=== PATIENT | female | born 1940 | race Asian ===

== ENCOUNTER 2018-07-03 02:43 | Inpatient (IN) | payer MEDICARE, OTHER ==
[~2018-07-03] VITALS: Ht 157.5 cm; Wt 72.1 kg
[~2018-07-03 02:43] MED LIST: AMLO-512 PO; ASPI81 PO; ATOR40TA28 PO; B CO1CAP4 PO; CLON1PAT12 TD; FERR-89 PO; FURO40 PO; HYDR-2924 PO; METO25 PO; SITA25 PO
[2018-07-03 02:59] LABS: GLUCOSE,POINT OF CARE 195 MG/DL (70-110)
[2018-07-03] MEDS ORDERED: LOSA25TA41 PO (03:11)
[2018-07-03] MEDS ORDERED: GLIP10 PO (03:11)
[2018-07-03] MEDS ORDERED: FUROSEMIDE 40 MG/4 ML VIAL IVP ONE (04:45)
[2018-07-03 04:49] LABS: EOSINOPHILS % (AUTO) 1.7 % (1.0-6.0); HEMATOCRIT 33.5 % (36-46); HEMOGLOBIN 10.9 g/dL (12.0-16.0); LYMPHOCYTES # (AUTO) 1.7 K/uL (1.0-4.8); LYMPHOCYTES % (AUTO) 11.5 % (22.0-44.0); MEAN CORPUSCULAR HEMOGLOBIN 29.8 pg (26.0-34.0); MEAN CORPUSCULAR HGB CONC 32.6 G/dL (31.0-37.0); MEAN CORPUSCULAR VOLUME 91 fL (80-100); MONOCYTES # (AUTO) 0.7 K/uL (0.1-1.0); NEUTROPHILS # (AUTO) 12.1 K/uL (1.8-7.7); NEUTROPHILS % (AUTO) 80.8 % (40.0-70.0); PLATELET COUNT (AUTO) 299 K/uL (150-450); RED BLOOD CELL COUNT(AUTO) 3.66 MIL/uL (4.00-5.20); RED CELL DISTRIBUTION WIDTH 15.5 % (11.5-14.5)
[2018-07-03 04:53] LABS: INR 0.9 (0.9-1.1); PROTHROMBIN TIME 9.9 SEC (9.4-11.6)
[2018-07-03 05:01] LABS: CALCIUM, TOTAL 9.3 mg/dL (8.8-10.5); CREATININE 8.59 mg/dL (0.60-1.30); POTASSIUM 4.1 mmol/L (3.5-5.1)
[2018-07-03 05:25] LABS: ALBUMIN 3.9 g/dL (3.4-5.0); BILIRUBIN,TOTAL 0.5 mg/dL (0.1-1.0); TOTAL PROTEIN, SERUM 8.7 g/dL (6.4-8.2)
[2018-07-03] MEDS ORDERED: NITROGLYCERIN 0.4 MG SUBLINGUAL TABLET #25 SL ONE (05:30)
[2018-07-03 06:00] LABS: APPEARANCE,URINE CLOUDY (CLEAR); BILIRUBIN,URINE NEGATIVE (NEGATIVE); GLUCOSE, URINE (UA) 100 mg/dL (NEGATIVE); KETONES,URINE NEGATIVE (NEGATIVE); LEUKOCYTE ESTERASE ,URINE MODERATE (NEGATIVE); NITRATE,URINE NEGATIVE (NEGATIVE); OCCULT BLOOD,URINE LARGE (NEGATIVE); PH,URINE 6.5 (5.0-8.0); PROTEIN,URINE SEE CONFIRM (NEGATIVE); UROBILINOGEN,URINE 0.2 mg/dL (<=1.0)
[2018-07-03 06:19] LABS: SULFOSALICYLIC ACID,URINE 4+ (Negative)
[2018-07-03 06:20] LABS: BACTERIA,URINE Few /HPF (None Seen); RBC,URINE 26-50 /HPF (0-2); SQUAMOUS EPITHELIAL CELL,UR Moderate /LPF (None Seen); WBC,URINE 26-50 /HPF (0-5)
[2018-07-03] MEDS ORDERED: ACETAMINOPHEN 325 MG TABLET PO ONE (07:45)
[2018-07-03] MEDS ORDERED: ONDANSETRON HCL 4 MG/2 ML VIAL IVP PRN ×2 (08:00→13:00)
[2018-07-03] MEDS ORDERED: ACETAMINOPHEN 325 MG TABLET PO PRN (08:00)
[2018-07-03] MEDS ORDERED: 0.9% SODIUM CHLORIDE 10 ML SYRINGE IVP PRN (08:00)
[2018-07-03] MEDS ORDERED: HEPARIN SODIUM,PORCINE 5,000 UNITS/ML VIAL IVP PRN (11:30)
[2018-07-03] MEDS: HEPARIN SODIUM 25000 UNITS/D5W 250 ML IV PRN (12:10)
[2018-07-03] MEDS ORDERED: ZOLPIDEM TARTRATE 5 MG TABLET PO PRN (13:00)
[2018-07-03] MEDS ORDERED: HYDROCODONE/ACETAMINOPHEN 5-325 MG TABLET PO PRN (13:00)
[2018-07-03] MEDS ORDERED: MORPHINE SULFATE 2 MG/ML SYRINGE IVP PRN (13:00)
[2018-07-03] MEDS: LEVOFLOXACIN 500 MG/D5% WATER 100 ML IV SCH (13:00)
[2018-07-03] MEDS ORDERED: BISACODYL 10 MG RECTAL RECTAL SUPPOSITORY PR PRN (13:00)
[2018-07-03] MEDS ORDERED: MAGNESIUM HYDROXIDE SUSPENSION 30 ML UDCUP PO PRN (13:00)
[2018-07-03] MEDS ORDERED: *CLINICAL-LEVOFLOXACIN IVPB DOSING CLINICAL ONE (13:00)
[2018-07-03 14:19] LABS: GLUCOSE,POINT OF CARE 253 MG/DL (70-110)
[2018-07-03] MEDS ORDERED: SODIUM CHLORIDE 0.9% 250 ML IV ONE (14:39)
[2018-07-03] MEDS: HydrALAZINE HCL 50 MG TABLET PO SCH ×2 (15:26→19:54)
[2018-07-03 16:00] VITALS: BP_SYST 178; BP_SYST 205; BP_DIAS 35; BP_DIAS 81
[2018-07-03] MEDS ORDERED: NITROGLYCERIN 2% (1 GM=INCH) PACKET TP ONE (16:17)
[2018-07-03] MEDS ORDERED: NITROGLYCERIN 2% (1 GM=INCH) PACKET TP SCH (16:30)
[2018-07-03] MEDS ORDERED: ASPIRIN 325 MG TABLET PO ONE (16:30)
[2018-07-03] MEDS ORDERED: LIDOCAINE/PF 1% 2 ML VIAL INJ ONE ×2 (16:54→17:11)
[2018-07-03] MEDS ORDERED: GlipiZIDE 10 MG TABLET PO SCH (17:00)
[2018-07-03 17:29] LABS: GLUCOSE,POINT OF CARE 214 MG/DL (70-110)
[2018-07-03] MEDS ORDERED: DEXTROSE 50%-WATER 25 GM/50 ML SYRINGE IVP PRN (18:00)
[2018-07-03] MEDS: INSULIN LISPRO 100 UNITS/ML SQ PRN ×2 (18:15→21:19)
[2018-07-03] MEDS ORDERED: NITROGLYCERIN 50 MG/D5% WATER 250 ML IV PRN (18:36)
[2018-07-03] MEDS: METOPROLOL TARTRATE 25 MG TABLET PO SCH (19:54)
[2018-07-03] MEDS: ATORVASTATIN CALCIUM 40 MG TABLET PO SCH (19:54)
[2018-07-03] MEDS: DOCUSATE SODIUM 100 MG CAPSULE PO SCH (19:54)
[2018-07-03 20:00] VITALS: BP 183/78
[2018-07-03 20:27] LABS: GLUCOSE,POINT OF CARE 205 MG/DL (70-110)
[2018-07-03] MEDS ORDERED: METOPROLOL TARTRATE 25 MG TABLET PO SCH (21:00)
[2018-07-03] MEDS ORDERED: SODIUM CHLORIDE 0.9% 2,000 ML IV ONE (21:47)
[2018-07-03 22:11] LABS: GLUCOSE,POINT OF CARE 223 MG/DL (70-110)
[2018-07-03] MEDS: NITROGLYCERIN 2% (1 GM=INCH) PACKET TP SCH (23:42)
[2018-07-04] VITALS (8 sets, daily range): BP systolic 141–212; BP diastolic 53–82
[2018-07-04 04:49] LABS: GLUCOSE,POINT OF CARE 223 MG/DL (70-110)
[2018-07-04] MEDS: HEPARIN SODIUM 25000 UNITS/D5W 250 ML IV PRN (05:00)
[2018-07-04] MEDS: INSULIN LISPRO 100 UNITS/ML SQ PRN ×2 (05:00→21:35)
[2018-07-04] MEDS: NITROGLYCERIN 2% (1 GM=INCH) PACKET TP SCH ×3 (05:00→18:00)
[2018-07-04 05:15] LABS: BASOPHILS % (AUTO) 0.7 % (0.0-2.0); EOSINOPHILS % (AUTO) 1.8 % (1.0-6.0); LYMPHOCYTES # (AUTO) 1.5 K/uL (1.0-4.8); LYMPHOCYTES % (AUTO) 16.1 % (22.0-44.0); MEAN CORPUSCULAR HEMOGLOBIN 30.3 pg (26.0-34.0); MEAN CORPUSCULAR HGB CONC 33.6 G/dL (31.0-37.0); MEAN CORPUSCULAR VOLUME 90 fL (80-100); MONOCYTES # (AUTO) 0.6 K/uL (0.1-1.0); MONOCYTES % (AUTO) 6.5 % (2.0-9.0); NEUTROPHILS # (AUTO) 6.8 K/uL (1.8-7.7); NEUTROPHILS % (AUTO) 74.9 % (40.0-70.0); PLATELET COUNT (AUTO) 254 K/uL (150-450); RED BLOOD CELL COUNT(AUTO) 2.88 MIL/uL (4.00-5.20); RED CELL DISTRIBUTION WIDTH 15.9 % (11.5-14.5)
[2018-07-04 05:16] LABS: HEMOGLOBIN 8.7 g/dL (12.0-16.0)
[2018-07-04 05:25] LABS: ALBUMIN 3.2 g/dL (3.4-5.0); BILIRUBIN,TOTAL 0.5 mg/dL (0.1-1.0); CALCIUM, TOTAL 8.9 mg/dL (8.8-10.5); CREATININE 5.54 mg/dL (0.60-1.30); MAGNESIUM 1.9 mg/dL (1.80-2.40); PHOSPHORUS 3.8 mg/dL (2.5-4.9); POTASSIUM 4.1 mmol/L (3.5-5.1); TOTAL PROTEIN, SERUM 6.9 g/dL (6.4-8.2)
[2018-07-04] MEDS: HydrALAZINE HCL 50 MG TABLET PO SCH ×3 (09:10→21:24)
[2018-07-04] MEDS: METOPROLOL TARTRATE 25 MG TABLET PO SCH ×2 (09:10→21:24)
[2018-07-04] MEDS: AmLODIPine BESYLATE 10 MG TABLET PO SCH (09:10)
[2018-07-04] MEDS: FUROSEMIDE 40 MG/4 ML VIAL IVP SCH (09:11)
[2018-07-04] MEDS: DOCUSATE SODIUM 100 MG CAPSULE PO SCH ×2 (09:11→21:00)
[2018-07-04] MEDS: ASPIRIN 81 MG CHEWABLE TABLET PO SCH (09:11)
[2018-07-04] MEDS: PANTOPRAZOLE SODIUM 40 MG DR TABLET PO SCH (09:11)
[2018-07-04] MEDS: LOSARTAN POTASSIUM 25 MG TABLET PO SCH (09:12)
[2018-07-04] MEDS ORDERED: SODIUM BICARBONATE 50 MEQ/50 ML VIAL ONE (12:18)
[2018-07-04] MEDS ORDERED: IOHEXOL 300 MG/ML 150 ML VIAL ONE (12:18)
[2018-07-04] MEDS ORDERED: LIDOCAINE/PF 1% 30 ML VIAL ONE (12:18)
[2018-07-04] MEDS ORDERED: HEPARIN SODIUM 1000 UNITS/NS 1,000 ML ONE (12:18)
[2018-07-04] MEDS ORDERED: FUROSEMIDE 40 MG/4 ML VIAL ONE (13:10)
[2018-07-04] MEDS ORDERED: NITROGLYCERIN 50 MG/D5% WATER 250 ML ONE (13:13)
[2018-07-04] MEDS ORDERED: FUROSEMIDE 40 MG/4 ML VIAL IVP ONE (13:30)
[2018-07-04] MEDS ORDERED: NITROGLYCERIN 50 MG/D5% WATER 250 ML IV PRN ×2 (13:30→13:45)
[2018-07-04] MEDS ORDERED: SODIUM CHLORIDE 0.9% 2,000 ML IV ONE (14:31)
[2018-07-04] MEDS: ATORVASTATIN CALCIUM 40 MG TABLET PO SCH (21:24)
[2018-07-04 21:40] LABS: GLUCOSE,POINT OF CARE 206 MG/DL (70-110)
[2018-07-04 21:40] LABS: GLUCOSE,POINT OF CARE 274 MG/DL (70-110)
[2018-07-05] VITALS: BP 163/69
[2018-07-05 00:14] LABS: GLUCOSE,POINT OF CARE 198 MG/DL (70-110)
[2018-07-05 04:00] VITALS: BP 124/43
[2018-07-05 04:59] LABS: BASOPHILS % (AUTO) 0.8 % (0.0-2.0); EOSINOPHILS % (AUTO) 0.5 % (1.0-6.0); HEMATOCRIT 30.6 % (36-46); HEMOGLOBIN 10.2 g/dL (12.0-16.0); LYMPHOCYTES # (AUTO) 2.7 K/uL (1.0-4.8); LYMPHOCYTES % (AUTO) 24.1 % (22.0-44.0); MEAN CORPUSCULAR HEMOGLOBIN 30.9 pg (26.0-34.0); MEAN CORPUSCULAR HGB CONC 33.4 G/dL (31.0-37.0); MEAN CORPUSCULAR VOLUME 93 fL (80-100); MONOCYTES % (AUTO) 8.8 % (2.0-9.0); NEUTROPHILS # (AUTO) 7.2 K/uL (1.8-7.7); NEUTROPHILS % (AUTO) 65.8 % (40.0-70.0); PLATELET COUNT (AUTO) 298 K/uL (150-450); RED BLOOD CELL COUNT(AUTO) 3.31 MIL/uL (4.00-5.20); RED CELL DISTRIBUTION WIDTH 16.4 % (11.5-14.5)
[2018-07-05] MEDS: NITROGLYCERIN 2% (1 GM=INCH) PACKET TP SCH ×5 (05:17→23:40)
[2018-07-05 05:35] LABS: ALBUMIN 3.6 g/dL (3.4-5.0); BILIRUBIN,TOTAL 0.4 mg/dL (0.1-1.0); CALCIUM, TOTAL 9.5 mg/dL (8.8-10.5); CREATININE 4.93 mg/dL (0.60-1.30); POTASSIUM 4.1 mmol/L (3.5-5.1); TOTAL PROTEIN, SERUM 8.1 g/dL (6.4-8.2)
[2018-07-05] MEDS: HEPARIN SODIUM 25000 UNITS/D5W 250 ML IV PRN (06:03)
[2018-07-05] MEDS: INSULIN LISPRO 100 UNITS/ML SQ PRN ×4 (06:04→21:11)
[2018-07-05 08:00] VITALS: BP 137/50
[2018-07-05] MEDS: PANTOPRAZOLE SODIUM 40 MG DR TABLET PO SCH (08:46)
[2018-07-05] MEDS: LOSARTAN POTASSIUM 25 MG TABLET PO SCH (08:46)
[2018-07-05] MEDS: AmLODIPine BESYLATE 10 MG TABLET PO SCH (08:46)
[2018-07-05] MEDS: METOPROLOL TARTRATE 25 MG TABLET PO SCH ×2 (08:47→20:54)
[2018-07-05] MEDS: HydrALAZINE HCL 50 MG TABLET PO SCH ×3 (08:47→23:40)
[2018-07-05] MEDS: ASPIRIN 81 MG CHEWABLE TABLET PO SCH (08:47)
[2018-07-05] MEDS: FUROSEMIDE 40 MG/4 ML VIAL IVP SCH (08:48)
[2018-07-05] MEDS: DOCUSATE SODIUM 100 MG CAPSULE PO SCH ×2 (09:00→19:22)
[2018-07-05] MEDS: EPOETIN ALFA 10,000 UNITS/ML VIAL SQ SCH (09:25)
[2018-07-05 12:00] VITALS: BP 148/55
[2018-07-05] MEDS: LEVOFLOXACIN 500 MG/D5% WATER 100 ML IV SCH (13:59)
[2018-07-05] MEDS ORDERED: LIDOCAINE/PF 1% 2 ML VIAL IV ONE (16:55)
[2018-07-05] MEDS ORDERED: EPINEPHrine 2 MG in DEXTROSE 5%-WATER 248 ML IV PRN (18:30)
[2018-07-05 20:00] VITALS: BP 176/57
[2018-07-05 20:04] LABS: GLUCOSE,POINT OF CARE 214 MG/DL (70-110)
[2018-07-05 20:04] LABS: GLUCOSE,POINT OF CARE 239 MG/DL (70-110)
[2018-07-05] MEDS: ATORVASTATIN CALCIUM 40 MG TABLET PO SCH (20:54)
[2018-07-05] MEDS: VITAMIN B COMP/VIT C/FOLIC ACID CAPSULE PO SCH (20:54)
[2018-07-05 21:15] LABS: GLUCOSE,POINT OF CARE 231 MG/DL (70-110)
[2018-07-06] VITALS (16 sets, daily range): BP systolic 120–212; BP diastolic 47–97
[2018-07-06] MEDS: ACETAMINOPHEN 325 MG TABLET PO PRN (01:27)
[2018-07-06 04:09] LABS: GLUCOSE,POINT OF CARE 249 MG/DL (70-110)
[2018-07-06 05:15] LABS: BASOPHILS % (AUTO) 0.2 % (0.0-2.0); EOSINOPHILS % (AUTO) 2.6 % (1.0-6.0); HEMATOCRIT 28.6 % (36-46); HEMOGLOBIN 9.3 g/dL (12.0-16.0); LYMPHOCYTES # (AUTO) 1.8 K/uL (1.0-4.8); MEAN CORPUSCULAR HEMOGLOBIN 30.2 pg (26.0-34.0); MEAN CORPUSCULAR HGB CONC 32.5 G/dL (31.0-37.0); MEAN CORPUSCULAR VOLUME 93 fL (80-100); MONOCYTES # (AUTO) 0.8 K/uL (0.1-1.0); MONOCYTES % (AUTO) 8.3 % (2.0-9.0); NEUTROPHILS # (AUTO) 6.4 K/uL (1.8-7.7); NEUTROPHILS % (AUTO) 68.9 % (40.0-70.0); PLATELET COUNT (AUTO) 279 K/uL (150-450); RED BLOOD CELL COUNT(AUTO) 3.08 MIL/uL (4.00-5.20); RED CELL DISTRIBUTION WIDTH 16.3 % (11.5-14.5)
[2018-07-06 05:43] LABS: CALCIUM, TOTAL 9.6 mg/dL (8.8-10.5); CREATININE 7.57 mg/dL (0.60-1.30); PHOSPHORUS 5.4 mg/dL (2.5-4.9); POTASSIUM 3.9 mmol/L (3.5-5.1)
[2018-07-06] MEDS: NITROGLYCERIN 2% (1 GM=INCH) PACKET TP SCH ×3 (06:08→17:19)
[2018-07-06] MEDS: INSULIN LISPRO 100 UNITS/ML SQ PRN ×3 (06:11→20:26)
[2018-07-06] MEDS: HydrALAZINE HCL 50 MG TABLET PO SCH ×3 (08:34→20:06)
[2018-07-06] MEDS: LOSARTAN POTASSIUM 25 MG TABLET PO SCH (08:34)
[2018-07-06] MEDS: FUROSEMIDE 40 MG/4 ML VIAL IVP SCH (08:34)
[2018-07-06] MEDS: AmLODIPine BESYLATE 10 MG TABLET PO SCH (08:34)
[2018-07-06] MEDS: PANTOPRAZOLE SODIUM 40 MG DR TABLET PO SCH (08:35)
[2018-07-06] MEDS: METOPROLOL TARTRATE 25 MG TABLET PO SCH (08:35)
[2018-07-06] MEDS: ASPIRIN 81 MG CHEWABLE TABLET PO SCH (08:35)
[2018-07-06] MEDS: VITAMIN B COMP/VIT C/FOLIC ACID CAPSULE PO SCH (09:00)
[2018-07-06] MEDS: DOCUSATE SODIUM 100 MG CAPSULE PO SCH ×2 (09:00→20:06)
[2018-07-06 11:04] LABS: GLUCOSE,POINT OF CARE 183 MG/DL (70-110)
[2018-07-06] MEDS ORDERED: SODIUM CHLORIDE 0.9% 2,000 ML IV ONE (11:31)
[2018-07-06] MEDS ORDERED: MIDAZOLAM HCL 2 MG/2 ML VIAL ONE (12:30)
[2018-07-06] MEDS ORDERED: NITROGLYCERIN 50 MG/D5% WATER 0 ML ONE (12:30)
[2018-07-06] MEDS ORDERED: FentaNYL CITRATE-PF 100 MCG/2 ML VIAL ONE (12:30)
[2018-07-06] MEDS ORDERED: SODIUM BICARBONATE 50 MEQ/50 ML VIAL ONE (12:31)
[2018-07-06] MEDS ORDERED: IOHEXOL 300 MG/ML 100 ML VIAL ONE (12:31)
[2018-07-06] MEDS ORDERED: IOHEXOL 300 MG/ML 150 ML VIAL ONE (12:31)
[2018-07-06] MEDS ORDERED: HEPARIN SODIUM 1000 UNITS/NS 1,000 ML ONE (12:31)
[2018-07-06] MEDS ORDERED: LIDOCAINE/PF 1% 30 ML VIAL ONE (12:31)
[2018-07-06] MEDS ORDERED: HEPARIN SODIUM,PORCINE 1,000 UNITS/ML 10 ML VIAL ONE (12:32)
[2018-07-06] MEDS ORDERED: VERAPAMIL HCL 2.5 MG/ML 2 ML VIAL ONE (12:32)
[2018-07-06] MEDS ORDERED: SODIUM CHLORIDE 0.9% 500 ML IV ONE (12:44)
[2018-07-06] MEDS ORDERED: LIDOCAINE 1% 30 ML/SOD BICARB 8.4% 4 ML SQ ONE (12:45)
[2018-07-06] MEDS ORDERED: HEPARIN SODIUM 2,000 UNITS in HEPARIN SODIUM 1000 UNITS/NS 1,000 ML IARTER ONE (12:50)
[2018-07-06] MEDS ORDERED: IOHEXOL 300 MG/ML 150 ML VIAL IARTER ONE (12:52)
[2018-07-06] MEDS ORDERED: IOHEXOL 300 MG/ML 50 ML VIAL IARTER ONE (12:52)
[2018-07-06] MEDS ORDERED: IOHEXOL 300 MG/ML 50 ML VIAL ONE (13:03)
[2018-07-06] MEDS: METOPROLOL SUCCINATE 50 MG ER TABLET PO SCH (15:12)
[2018-07-06] MEDS ORDERED: LIDOCAINE/PF 1% 2 ML VIAL IM ONE (17:57)
[2018-07-06] MEDS: ATORVASTATIN CALCIUM 40 MG TABLET PO SCH (20:06)
[2018-07-06 23:14] LABS: GLUCOSE,POINT OF CARE 233 MG/DL (70-110)
[2018-07-06 23:14] LABS: GLUCOSE,POINT OF CARE 276 MG/DL (70-110)
[2018-07-07] VITALS: BP 152/58
[2018-07-07] MEDS: NITROGLYCERIN 2% (1 GM=INCH) PACKET TP SCH ×5 (01:59→23:54)
[2018-07-07 04:00] VITALS: BP 163/52
[2018-07-07 05:00] LABS: BASOPHILS % (AUTO) 1.2 % (0.0-2.0); EOSINOPHILS % (AUTO) 1.7 % (1.0-6.0); HEMATOCRIT 28.9 % (36-46); HEMOGLOBIN 9.5 g/dL (12.0-16.0); LYMPHOCYTES # (AUTO) 1.7 K/uL (1.0-4.8); LYMPHOCYTES % (AUTO) 18.3 % (22.0-44.0); MEAN CORPUSCULAR HEMOGLOBIN 30.7 pg (26.0-34.0); MEAN CORPUSCULAR HGB CONC 32.8 G/dL (31.0-37.0); MEAN CORPUSCULAR VOLUME 94 fL (80-100); MONOCYTES # (AUTO) 0.9 K/uL (0.1-1.0); MONOCYTES % (AUTO) 9.9 % (2.0-9.0); NEUTROPHILS # (AUTO) 6.4 K/uL (1.8-7.7); NEUTROPHILS % (AUTO) 68.9 % (40.0-70.0); PLATELET COUNT (AUTO) 285 K/uL (150-450); RED BLOOD CELL COUNT(AUTO) 3.08 MIL/uL (4.00-5.20); RED CELL DISTRIBUTION WIDTH 17.2 % (11.5-14.5)
[2018-07-07 05:19] LABS: ALBUMIN 3.4 g/dL (3.4-5.0); BILIRUBIN,TOTAL 0.4 mg/dL (0.1-1.0); CALCIUM, TOTAL 9.6 mg/dL (8.8-10.5); CHOL/HDL RATIO 2.1 (3.9-5.7); CREATININE 6.97 mg/dL (0.60-1.30); MAGNESIUM 1.9 mg/dL (1.80-2.40); PHOSPHORUS 5.6 mg/dL (2.5-4.9); POTASSIUM 4.5 mmol/L (3.5-5.1); TOTAL PROTEIN, SERUM 7.4 g/dL (6.4-8.2)
[2018-07-07] MEDS: INSULIN LISPRO 100 UNITS/ML SQ PRN ×4 (06:02→21:30)
[2018-07-07] MEDS: HEPARIN SODIUM,PORCINE 5,000 UNITS/ML VIAL IVP PRN ×2 (06:09→20:32)
[2018-07-07 06:49] LABS: GLUCOSE,POINT OF CARE 265 MG/DL (70-110)
[2018-07-07 08:00] VITALS: BP 158/61
[2018-07-07] MEDS: LOSARTAN POTASSIUM 25 MG TABLET PO SCH ×2 (09:00→11:00)
[2018-07-07] MEDS: HydrALAZINE HCL 50 MG TABLET PO SCH ×4 (09:00→20:18)
[2018-07-07] MEDS: METOPROLOL SUCCINATE 50 MG ER TABLET PO SCH (09:00)
[2018-07-07] MEDS: DOCUSATE SODIUM 100 MG CAPSULE PO SCH ×2 (09:45→20:18)
[2018-07-07] MEDS: FUROSEMIDE 40 MG/4 ML VIAL IVP SCH (09:45)
[2018-07-07] MEDS: AmLODIPine BESYLATE 10 MG TABLET PO SCH (09:46)
[2018-07-07] MEDS: ASPIRIN 81 MG CHEWABLE TABLET PO SCH (09:46)
[2018-07-07] MEDS: PANTOPRAZOLE SODIUM 40 MG DR TABLET PO SCH (09:46)
[2018-07-07] MEDS: VITAMIN B COMP/VIT C/FOLIC ACID CAPSULE PO SCH (09:46)
[2018-07-07] MEDS: EPOETIN ALFA 10,000 UNITS/ML VIAL SQ SCH (09:48)
[2018-07-07] MEDS: HEPARIN SODIUM 25000 UNITS/D5W 250 ML IV PRN (09:53)
[2018-07-07 12:00] VITALS: BP_SYST 156; BP_SYST 183; BP_DIAS 55; BP_DIAS 58
[2018-07-07] MEDS: LEVOFLOXACIN 500 MG/D5% WATER 100 ML IV SCH (12:23)
[2018-07-07 12:44] LABS: GLUCOSE,POINT OF CARE 314 MG/DL (70-110)
[2018-07-07] MEDS ORDERED: CloNIDine HCL 0.1 MG TABLET PO PRN (15:15)
[2018-07-07 16:00] VITALS: BP 166/62
[2018-07-07 18:45] LABS: GLUCOSE,POINT OF CARE 186 MG/DL (70-110)
[2018-07-07 20:00] VITALS: BP 157/50
[2018-07-07] MEDS: ATORVASTATIN CALCIUM 40 MG TABLET PO SCH (20:18)
[2018-07-08] VITALS (8 sets, daily range): BP systolic 120–173; BP diastolic 48–72
[2018-07-08] MEDS: ACETAMINOPHEN 325 MG TABLET PO PRN ×3 (03:58→23:12)
[2018-07-08] MEDS: NITROGLYCERIN 2% (1 GM=INCH) PACKET TP SCH ×4 (05:35→23:12)
[2018-07-08] MEDS: HEPARIN SODIUM 25000 UNITS/D5W 250 ML IV PRN ×2 (05:36→12:55)
[2018-07-08] MEDS: INSULIN LISPRO 100 UNITS/ML SQ PRN ×3 (05:53→20:31)
[2018-07-08 05:54] LABS: GLUCOSE,POINT OF CARE 274 MG/DL (70-110)
[2018-07-08 05:54] LABS: GLUCOSE,POINT OF CARE 299 MG/DL (70-110)
[2018-07-08 05:54] LABS: GLUCOSE,POINT OF CARE 308 MG/DL (70-110)
[2018-07-08] MEDS: METOPROLOL SUCCINATE 50 MG ER TABLET PO SCH (08:30)
[2018-07-08] MEDS: HydrALAZINE HCL 50 MG TABLET PO SCH ×4 (08:30→20:35)
[2018-07-08] MEDS: VITAMIN B COMP/VIT C/FOLIC ACID CAPSULE PO SCH (08:30)
[2018-07-08] MEDS: AmLODIPine BESYLATE 10 MG TABLET PO SCH (08:31)
[2018-07-08] MEDS: FUROSEMIDE 40 MG/4 ML VIAL IVP SCH (08:31)
[2018-07-08] MEDS: LOSARTAN POTASSIUM 25 MG TABLET PO SCH (08:31)
[2018-07-08] MEDS: DOCUSATE SODIUM 100 MG CAPSULE PO SCH ×2 (08:31→20:28)
[2018-07-08] MEDS: ASPIRIN 81 MG CHEWABLE TABLET PO SCH (08:31)
[2018-07-08] MEDS: PANTOPRAZOLE SODIUM 40 MG DR TABLET PO SCH (08:31)
[2018-07-08 09:48] LABS: BASOPHILS % (AUTO) 1.3 % (0.0-2.0); EOSINOPHILS % (AUTO) 2.5 % (1.0-6.0); HEMATOCRIT 27.7 % (36-46); HEMOGLOBIN 9.1 g/dL (12.0-16.0); LYMPHOCYTES # (AUTO) 1.8 K/uL (1.0-4.8); LYMPHOCYTES % (AUTO) 20.8 % (22.0-44.0); MEAN CORPUSCULAR HEMOGLOBIN 30.7 pg (26.0-34.0); MEAN CORPUSCULAR HGB CONC 32.8 G/dL (31.0-37.0); MEAN CORPUSCULAR VOLUME 94 fL (80-100); MONOCYTES # (AUTO) 0.7 K/uL (0.1-1.0); MONOCYTES % (AUTO) 8.5 % (2.0-9.0); NEUTROPHILS # (AUTO) 5.7 K/uL (1.8-7.7); NEUTROPHILS % (AUTO) 66.9 % (40.0-70.0); PLATELET COUNT (AUTO) 265 K/uL (150-450); RED BLOOD CELL COUNT(AUTO) 2.96 MIL/uL (4.00-5.20); RED CELL DISTRIBUTION WIDTH 17.1 % (11.5-14.5)
[2018-07-08 10:20] LABS: CALCIUM, TOTAL 9.3 mg/dL (8.8-10.5); CREATININE 10.04 mg/dL (0.60-1.30); MAGNESIUM 2.2 mg/dL (1.80-2.40); PHOSPHORUS 6.8 mg/dL (2.5-4.9); POTASSIUM 4.1 mmol/L (3.5-5.1)
[2018-07-08] MEDS ORDERED: ENALAPRILAT DIHYDRATE 1.25 MG/ML VIAL IVP PRN (11:00)
[2018-07-08] MEDS: HEPARIN SODIUM,PORCINE 5,000 UNITS/ML VIAL IVP PRN (12:54)
[2018-07-08 14:39] LABS: GLUCOSE,POINT OF CARE 251 MG/DL (70-110)
[2018-07-08] MEDS ORDERED: LIDOCAINE/PF 1% 2 ML VIAL IV ONE (16:34)
[2018-07-08 17:44] LABS: GLUCOSE,POINT OF CARE 241 MG/DL (70-110)
[2018-07-08] MEDS: ATORVASTATIN CALCIUM 40 MG TABLET PO SCH (20:28)
[2018-07-08] MEDS: CARVEDILOL 3.125 MG TABLET PO SCH (20:29)
[2018-07-08] MEDS: INSULIN GLARGINE,HUM.REC.ANLOG 100 UNITS/ML SQ SCH (21:19)
[2018-07-08 23:35] LABS: GLUCOSE,POINT OF CARE 256 MG/DL (70-110)
[2018-07-09] VITALS (8 sets, daily range): BP systolic 124–166; BP diastolic 45–70
[2018-07-09] MEDS: NITROGLYCERIN 2% (1 GM=INCH) PACKET TP SCH ×3 (05:37→17:26)
[2018-07-09] MEDS: INSULIN LISPRO 100 UNITS/ML SQ PRN ×4 (05:46→20:44)
[2018-07-09] MEDS: HEPARIN SODIUM 25000 UNITS/D5W 250 ML IV PRN (06:05)
[2018-07-09 08:40] LABS: GLUCOSE,POINT OF CARE 254 MG/DL (70-110)
[2018-07-09 10:02] LABS: EOSINOPHILS % (AUTO) 2.3 % (1.0-6.0); HEMATOCRIT 31.7 % (36-46); HEMOGLOBIN 10.4 g/dL (12.0-16.0); LYMPHOCYTES # (AUTO) 1.5 K/uL (1.0-4.8); MEAN CORPUSCULAR HEMOGLOBIN 30.4 pg (26.0-34.0); MEAN CORPUSCULAR HGB CONC 32.8 G/dL (31.0-37.0); MEAN CORPUSCULAR VOLUME 93 fL (80-100); MONOCYTES # (AUTO) 0.6 K/uL (0.1-1.0); MONOCYTES % (AUTO) 6.5 % (2.0-9.0); NEUTROPHILS # (AUTO) 6.7 K/uL (1.8-7.7); NEUTROPHILS % (AUTO) 74.2 % (40.0-70.0); PLATELET COUNT (AUTO) 299 K/uL (150-450); RED BLOOD CELL COUNT(AUTO) 3.42 MIL/uL (4.00-5.20); RED CELL DISTRIBUTION WIDTH 17.5 % (11.5-14.5)
[2018-07-09 10:14] LABS: CALCIUM, TOTAL 9.8 mg/dL (8.8-10.5); CREATININE 4.08 mg/dL (0.60-1.30); POTASSIUM 3.5 mmol/L (3.5-5.1)
[2018-07-09] MEDS: VITAMIN B COMP/VIT C/FOLIC ACID CAPSULE PO SCH (10:28)
[2018-07-09] MEDS: PANTOPRAZOLE SODIUM 40 MG DR TABLET PO SCH (10:28)
[2018-07-09] MEDS: FUROSEMIDE 40 MG/4 ML VIAL IVP SCH (10:28)
[2018-07-09] MEDS: DOCUSATE SODIUM 100 MG CAPSULE PO SCH ×2 (10:29→20:01)
[2018-07-09] MEDS: CARVEDILOL 3.125 MG TABLET PO SCH ×2 (10:29→20:01)
[2018-07-09] MEDS: ASPIRIN 81 MG CHEWABLE TABLET PO SCH (10:29)
[2018-07-09] MEDS: AmLODIPine BESYLATE 10 MG TABLET PO SCH (10:29)
[2018-07-09] MEDS: LOSARTAN POTASSIUM 50 MG TABLET PO SCH (10:29)
[2018-07-09] MEDS: HydrALAZINE HCL 50 MG TABLET PO SCH ×3 (10:30→20:01)
[2018-07-09] MEDS ORDERED: SODIUM CHLORIDE 0.9% 250 ML IV ONE (12:51)
[2018-07-09] MEDS: LEVOFLOXACIN 500 MG/D5% WATER 100 ML IV SCH (12:55)
[2018-07-09 17:20] LABS: GLUCOSE,POINT OF CARE 245 MG/DL (70-110)
[2018-07-09 17:20] LABS: GLUCOSE,POINT OF CARE 308 MG/DL (70-110)
[2018-07-09 19:54] LABS: GLUCOSE,POINT OF CARE 320 MG/DL (70-110)
[2018-07-09] MEDS: ATORVASTATIN CALCIUM 40 MG TABLET PO SCH (20:01)
[2018-07-09] MEDS: INSULIN GLARGINE,HUM.REC.ANLOG 100 UNITS/ML SQ SCH (20:43)
[2018-07-09] MEDS: ACETAMINOPHEN 325 MG TABLET PO PRN (21:39)
[2018-07-10] VITALS: BP 136/53
[2018-07-10] MEDS: NITROGLYCERIN 2% (1 GM=INCH) PACKET TP SCH ×3 (00:12→12:22)
[2018-07-10 03:34] LABS: GLUCOSE,POINT OF CARE 243 MG/DL (70-110)
[2018-07-10 03:34] LABS: GLUCOSE,POINT OF CARE 242 MG/DL (70-110)
[2018-07-10 04:00] VITALS: BP 146/58
[2018-07-10 04:57] LABS: BASOPHILS % (AUTO) 1.3 % (0.0-2.0); EOSINOPHILS % (AUTO) 2.5 % (1.0-6.0); HEMATOCRIT 28.2 % (36-46); HEMOGLOBIN 9.2 g/dL (12.0-16.0); LYMPHOCYTES # (AUTO) 1.6 K/uL (1.0-4.8); LYMPHOCYTES % (AUTO) 19.2 % (22.0-44.0); MEAN CORPUSCULAR HEMOGLOBIN 30.8 pg (26.0-34.0); MEAN CORPUSCULAR HGB CONC 32.7 G/dL (31.0-37.0); MEAN CORPUSCULAR VOLUME 94 fL (80-100); MONOCYTES # (AUTO) 0.7 K/uL (0.1-1.0); MONOCYTES % (AUTO) 8.3 % (2.0-9.0); NEUTROPHILS # (AUTO) 5.6 K/uL (1.8-7.7); NEUTROPHILS % (AUTO) 68.7 % (40.0-70.0); PLATELET COUNT (AUTO) 239 K/uL (150-450); RED BLOOD CELL COUNT(AUTO) 2.99 MIL/uL (4.00-5.20)
[2018-07-10 05:15] LABS: GLUCOSE,POINT OF CARE 264 MG/DL (70-110)
[2018-07-10] MEDS: INSULIN LISPRO 100 UNITS/ML SQ PRN (05:38)
[2018-07-10] MEDS: HEPARIN SODIUM 25000 UNITS/D5W 250 ML IV PRN (05:41)
[2018-07-10 05:49] LABS: CALCIUM, TOTAL 9.4 mg/dL (8.8-10.5); CREATININE 8.64 mg/dL (0.60-1.30); POTASSIUM 4.3 mmol/L (3.5-5.1)
[2018-07-10] MEDS ORDERED: DEXTROSE 50%-WATER 25 GM/50 ML SYRINGE IVP PRN (07:00)
[2018-07-10] MEDS ORDERED: INSULIN LISPRO 100 UNITS/ML SQ PRN (07:00)
[2018-07-10] MEDS ORDERED: INSULIN GLARGINE,HUM.REC.ANLOG 100 UNITS/ML SQ SCH (09:00)
[2018-07-10] MEDS: PANTOPRAZOLE SODIUM 40 MG DR TABLET PO SCH (09:05)
[2018-07-10] MEDS: VITAMIN B COMP/VIT C/FOLIC ACID CAPSULE PO SCH (09:05)
[2018-07-10] MEDS: DOCUSATE SODIUM 100 MG CAPSULE PO SCH (09:05)
[2018-07-10] MEDS: FUROSEMIDE 40 MG/4 ML VIAL IVP SCH (09:05)
[2018-07-10] MEDS: CARVEDILOL 3.125 MG TABLET PO SCH (09:05)
[2018-07-10] MEDS: AmLODIPine BESYLATE 10 MG TABLET PO SCH (09:05)
[2018-07-10] MEDS: LOSARTAN POTASSIUM 50 MG TABLET PO SCH (09:06)
[2018-07-10] MEDS: ASPIRIN 81 MG CHEWABLE TABLET PO SCH (09:06)
[2018-07-10 09:11] VITALS: BP 143/54
[2018-07-10] MEDS: EPOETIN ALFA 10,000 UNITS/ML VIAL SQ SCH (09:13)
[2018-07-10] MEDS: HydrALAZINE HCL 50 MG TABLET PO SCH ×2 (11:11→16:00)
[2018-07-10 11:30] LABS: GLUCOMETER DEV NAME(LOC) 5S.2; GLUCOSE,POINT OF CARE 290 MG/DL (70-110)
[2018-07-10] MEDS ORDERED: FURO40I IV (14:06)
[2018-07-10] MEDS ORDERED: ASPI81 PO (14:08)
[2018-07-10] MEDS ORDERED: DSS100 PO (14:09)
[2018-07-10] MEDS ORDERED: INSLAN SQ (14:09)
[2018-07-10] MEDS ORDERED: CARV3 PO (14:09)
[2018-07-10] MEDS ORDERED: NTP TD (14:10)
[2018-07-10] MEDS ORDERED: LEVO500P13 IV (14:10)
[2018-07-10] MEDS ORDERED: FOLI1CAP2 PO (14:11)
[2018-07-10] MEDS ORDERED: PANT40TA25 PO (14:11)
[2018-07-10] MEDS ORDERED: ACET-2247 PO (14:13)
[2018-07-10] MEDS ORDERED: BISA5TAB12 PO (14:14)
[2018-07-10] MEDS ORDERED: DEXT50DI6 IV (14:15)
[2018-07-10] MEDS ORDERED: [UNRECOGNIZED DRUG - CODE] IV (14:16)
[2018-07-10] MEDS ORDERED: [UNRECOGNIZED DRUG - CODE] IV (14:18)
[2018-07-10] MEDS ORDERED: HYDR-4061 PO (14:19)
[2018-07-10] MEDS ORDERED: INSU100V SQ (14:20)
[2018-07-10] MEDS ORDERED: MOM30 PO (14:21)
[2018-07-10] MEDS ORDERED: ONDA220I IV (14:22)
[2018-07-10] MEDS ORDERED: ZOLP5 PO (14:22)
[2018-07-10 14:49] LABS: GLUCOMETER DEV NAME(LOC) 5S.2; GLUCOSE,POINT OF CARE 324 MG/DL (70-110)
[2018-07-10 15:11] VITALS: BP 145/57
== END 2018-07-10 16:00 | disposition short-term general hospital (02) | DRG 280 ==
LOC: EMS 02:43 → ICUN 13:08 → ICU 17:06 → 5S 07-10 08:05
PROVIDERS: ADMIT Internal Medicine; ATTEND Internal Medicine
PROC: 05HY33Z Insertion of Infusion Device into Upper Vein, Percutaneous Approach (ICD-10-PCS; 2018-07-03)
PROC: B54MZZA Ultrasonography of Right Upper Extremity Veins, Guidance (ICD-10-PCS; 2018-07-03)
PROC: 5A1D70Z Performance of Urinary Filtration, Intermittent, Less than 6 Hours Per Day (ICD-10-PCS; 2018-07-03)
PROC: 5A1D70Z Performance of Urinary Filtration, Intermittent, Less than 6 Hours Per Day (ICD-10-PCS; 2018-07-04)
PROC: 4A023N7 Measurement of Cardiac Sampling and Pressure, Left Heart, Percutaneous Approach (ICD-10-PCS; principal; 2018-07-06)
PROC: B2111ZZ Fluoroscopy of Multiple Coronary Arteries using Low Osmolar Contrast (ICD-10-PCS; 2018-07-06)
PROC: B2151ZZ Fluoroscopy of Left Heart using Low Osmolar Contrast (ICD-10-PCS; 2018-07-06)
PROC: 5A1D70Z Performance of Urinary Filtration, Intermittent, Less than 6 Hours Per Day (ICD-10-PCS; 2018-07-06)
PROC: 5A1D70Z Performance of Urinary Filtration, Intermittent, Less than 6 Hours Per Day (ICD-10-PCS; 2018-07-09)
DX: I21.4 Non-ST elevation (NSTEMI) myocardial infarction (principal); I50.31 Acute diastolic (congestive) heart failure; N18.6 End stage renal disease; I13.2 Hypertensive heart and chronic kidney disease with heart failure and with stage 5 chronic kidney disease, or end stage renal disease; N39.0 Urinary tract infection, site not specified; E78.5 Hyperlipidemia, unspecified; E11.22 Type 2 diabetes mellitus with diabetic chronic kidney disease; E78.00 Pure hypercholesterolemia, unspecified; F41.9 Anxiety disorder, unspecified; E11.21 Type 2 diabetes mellitus with diabetic nephropathy; D63.1 Anemia in chronic kidney disease; I25.10 Atherosclerotic heart disease of native coronary artery without angina pectoris; E83.30 Disorder of phosphorus metabolism, unspecified; Z99.2 Dependence on renal dialysis; Z79.4 Long term (current) use of insulin; Z87.442 Personal history of urinary calculi; Z95.1 Presence of aortocoronary bypass graft
CPT/HCPCS: 36245; 36569; 71250; 76937; 83735; 84100; 86706; 87081; 87086; 87340; 93005; 93306; G0378; J0885; J1644; J1815; J1940; J1956; J2250; J2270; J2405; J3010; J3490; J7030; J7050; Q9967

== ENCOUNTER → 2019-02-11 | Outpatient (CLI) | payer MEDICARE, OTHER ==
[~2019-02-11] MED LIST changes: +ACET-2247 PO; +AMIN30LI28 PO; -AMLO-512 PO; +AMLO10TA7 PO; +ASCO500 PO; -B CO1CAP4 PO; +CARV3 PO; -CLON1PAT12 TD; +CYAN1TAB19 PO; -FERR-89 PO; +FOLI1CAP2 PO; -FURO40 PO; +HYDR-4061 PO; +INSLAN SQ; +INSU100V SQ; +LOSA50TA64 PO; -METO25 PO; +NITR0.4T50 SL; +PANT40TA25 PO; -SITA25 PO; +TICA90TA PO; +ZOLP5 PO
== END | disposition home or self-care (01) ==
LOC: RADPV 10:48
PROVIDERS: ATTEND Internal Medicine
DX: M19.011 Primary osteoarthritis, right shoulder (principal); M85.811 Other specified disorders of bone density and structure, right shoulder